=== PATIENT | female | born 1940 | race Caucasian/White ===

== ENCOUNTER 2018-02-03 17:08 | Emergency (ER) | payer OTHER, MEDICARE ==
[~2018-02-03] VITALS: Ht 170.2 cm; Wt 70.3 kg
[~2018-02-03 17:08] MED LIST: AUGMENTIN 875875 MG PO; IBU-6600 MG PO; LISINOPRIL10 MG PO; SIMVASTATIN20 MG PO; TYLENOL #31 TAB PO
--- NOTE | 2018-02-03 17:51 | ED HEAD/FACIAL INJ COMPLAINT ---
History of Present Illness General Chief Complaint: General Adult Stated Complaint: LEFT SIDE PAIN S/P FALL YESTERDAY -LOC +HEADSTRIKE Source: patient Exam Limitations: no limitations Vital Signs & Intake/Output Vital Signs & Intake/Output Vital Signs Date Time Temp Pulse Resp B/P B/P Pulse O2 O2 Flow FiO2 Mean Ox Delivery Rate 02/04 1916 96.7 77 18 160/76 96 Room Air 02/03 1713 97.5 94 16 197/75 97 Room Air Allergies Coded Allergies: NO KNOWN ALLERGIES (02/10/14) Reconcile Medications Lisinopril 10 MG TABLET 1 TAB PO QPM BP (Reported) Metoclopramide HCl (Reglan) 10 MG TABLET 1 TAB PO 4 TIMES/DAY PRN NAUSEA Simvastatin (Zocor) 20 MG TAB 1 TAB PO QPM CHOLESTEROL (Reported) Tramadol HCl 50 MG TABLET 1 TAB PO BIDP PRN PAIN Tylenol With Codeine (Tylenol With Codeine #3 Tablet) 1 TAB TAB 1 TAB PO Q6 PAIN Triage Note: PT STATES SHE WAS WAS SHUTTING OFF THE GRILL TURNED AND FELL HITTING HER HEAD. PT STATE SHE DOES NOT HAVE HEAD PAIN BUT STATES HER RIBS HURT ON THE LEFT SIDE. PT DENIES THINNERS. Triage Nurses Notes Reviewed? yes Onset: Abrupt Severity: moderate Severity Numbers: 5 Method of Injury: fall Loss of Consciousness: no loss of consciousness HPI: Patient is a 78-year-old female with a past medical history of hypertension who is an everyday smoker presents emergency room saying that while bent over turning on the gas of her drill she lost her footing falling backwards striking the left lateral aspect of her ribs and her posterior aspect of her head to the floor which no loss of consciousness had occurred patient denies any headache or neck or back pain however is complaining of left lateral rib pain. Denies any abdominal pain. Patient states that coughing makes worse no hemoptysis has occurred (Cam Aviles) Past History Travel History Traveled to [place] past 21 day No Medical History Any Pertinent Medical History? see below for history Cardiovascular: hypertension Tetanus Vaccine: 02/10/14 Surgical History Surgical History: non-contributory Psychosocial History What is your primary language Italian Tobacco Use: Current Daily Use Daily Tobacco Use Amount/Type: => 5 Cigarettes daily ETOH Use: occasional use Illicit Drug Use: denies illicit drug use Family History Hx Contributory? No (Cam Aviles) Review of Systems Review of Systems Constitutional: Reports: no symptoms. EENTM: Reports: no symptoms. Respiratory: Reports: see HPI, cough. Cardiovascular: Reports: see HPI. GI: Reports: no symptoms. Genitourinary: Reports: no symptoms. Musculoskeletal: Reports: see HPI. Skin: Reports: no symptoms. Neurological/Psychological: Reports: no symptoms. Hematologic/Endocrine: Reports: no symptoms. Immunologic/Allergic: Reports: no symptoms. All Other Systems: Reviewed and Negative (Cam Aviles) Physical Exam Physical Exam General Appearance: no apparent distress, alert, comfortable Head: atraumatic Eyes: Bilateral: normal appearance, PERRL, EOMI. Ears, Nose, Throat: normal pharynx, normal ENT inspection, hearing grossly normal Neck: normal inspection, no midline tenderness Respiratory: no respiratory distress, rhonchi Cardiovascular: regular rate/rhythm Back: no vertebral tenderness Extremities: normal inspection, no edema Psychiatric: awake, alert, oriented x 3 Cranial Nerves: normal hearing, normal speech, PERRL Skin: intact, normal color, warm/dry Comments: LEFT LATERAL CHEST- NORMAL INSPECTION MODERATE INTERCOSTAL PAIN NO STEP OFF DEFORMITY (Cam Aviles) Progress Differential Diagnosis: c-spine injury, facial fracture, globe injury, ICH, orbit fracture, skull fracture Plan of Care: Current Medications Sig/Mele Start time Last Medication Dose Stop Time Status Admin Tramadol HCl 50 MG ONCE ONE 02/04 2000 UNVr 02/03 (Ultram) 02/03 Patient upon initial examination was resting comfortably at bedside no central spinous tenderness on exam no bleeding has occurred patient was given Percocet prior to evaluation in which she had noted nausea episodes Zofran did not improve symptoms Reglan was administered patient was given tramadol patient was given tramadol with no adverse reactions an improvement of pain CT scans were resulted showing no acute abnormalities discussed results with patient patient normal steady gait clear lungs auscultation nontender abdomen on exam no central spinous pain Nexus criteria 0 patient will be treated for concerns of minor head injury and left rib contusion Diagnostic Imaging: Viewed by Me: CT Scan. Radiology Impression: no acute abnormality, no fracture Comments: PATIENT: SANDRA MONK PRESENT AGE: 78 PATIENT ACCOUNT NO: [id number] : 41 LOCATION: [facility] ([place]) ORDERING PHYSICIAN: Jose THURMAN SERVICE DATE: 02/03/181087 EXAM TYPE: CAT - CT CHEST WO IV CONTRAST EXAMINATION: CT CHEST WITHOUT CONTRAST CLINICAL INFORMATION: Fall, pain left ribs. COMPARISON: CT scan of the chest, abdomen and pelvis 06/12/2014. TECHNIQUE: Multidetector volumetric CT imaging of the chest was done. Axial MIP volume rendering provided. Sagittal and coronal reformatted images were obtained. DLP: 212.06 mGy-cm FINDINGS: TEST AND TURN UP TECHNICIAN: Unremarkable. LUNGS: The lungs are symmetrically well expanded. There is a stable 3 mm granuloma in the left upper lobe (image 86/560). There is a stable 2.5 mm nodule in the right upper lobe laterally (image 190/560). There is no focal consolidation. MEDIASTINUM: There are atheromatous calcifications of the great vessels of the neck and the aorta. There are coronary artery calcifications. The heart is normal in size. There are small mediastinal lymph nodes, similar compared to prior imaging. There are no pericardial effusions the thyroid gland is normal. The central airways are patent. There is a small hiatal hernia on the current study. PLEURA: There are no pleural effusions. No pneumothorax is demonstrated. CHEST WALL AND AXILLA: There is no axillary lymphadenopathy. There are small lucent centered lymph nodes in the axillary bilaterally. There are scattered calcifications in the breasts bilaterally. UPPER ABDOMEN: There is a 1.2 cm area of low attenuation in the superior aspect of the left lobe of the liver, with Hounsfield units consistent with a cyst. This is increased in size compared to prior imaging. OSSEOUS STRUCTURES: No fractures or subluxations are demonstrated. IMPRESSION: 1. There are no acute osseous findings. No fractures or subluxations are demonstrated. 2. There are no pleural effusions, focal consolidation or pneumothorax. 3. There are small stable nodules bilaterally as described above. There is a small hiatal hernia. DICTATED BY: Brigido Bedoya MD DATE/TIME DICTATED:02/03/181942 BIOLOGICAL SCIENCES INSTRUCTOR:ERROL DATE/TIME TRANSCRIBED:02/03/181942 CONFIDENTIAL, DO NOT COPY WITHOUT APPROPRIATE AUTHORIZATION. <Electronically signed in Other Vendor System> SIGNED BY: Brigido Bedoya MD 02/03/181958 PATIENT: SANDRA MONK PRESENT AGE: 78 PATIENT ACCOUNT NO: [id number] : 41 LOCATION: [facility] ([place] ORDERING PHYSICIAN: Cam THURMAN SERVICE DATE: 02/03/18 EXAM TYPE: CAT - CT CERV SPINE WO IV CONTRAST; CT HEAD WO IV CONTRAST EXAMINATION: CT HEAD WITHOUT CONTRAST CT CERVICAL SPINE WITHOUT CONTRAST CLINICAL INFORMATION: Fall. Head strike. COMPARISON: None. TECHNIQUE: Multidetector CT imaging of the head and cervical spine was performed without the use of intravenous contrast. Coronal and sagittal reformatted images were generated at the technologist workstation. DLP: 938.99 mGy-cm. FINDINGS: CT head: There is no evidence of acute intracranial hemorrhage or territorial infarction. No abnormal mass-effect or midline shift is seen. Bruce to white matter differentiation is well preserved. No extra-axial fluid collections are identified. The ventricles and sulci are commensurately prominent consistent with moderate diffuse volume loss. There are relatively extensive areas of low-attenuation in the periventricular and subcortical white matter consistent with chronic microvascular ischemic disease. There have been bilateral lens extractions. There are no large scalp contusions or hematomas. There are atheromatous calcifications of the cavernous internal carotid arteries bilaterally. There is fluid at the right mastoid tip. The left mastoid air cells and visualized paranasal sinuses are well-aerated. CT cervical spine: There is a mild dextroscoliosis. There is degenerative retrolisthesis of C5 on C6. Vertebral body heights are maintained and there are no compression fractures. There are marginal osteophytes at C4-C5 and C5-C6. There are facet arthropathic changes which are most severe on the left at C3-C4 and on the right at C4-C5. The lateral masses of C1 and C2 are normally aligned and the dens is intact. The atlantooccipital articulations are normal. There are prominent multifocal atheromatous calcifications. Thyroid gland appears normal. The visualized lung apices are well-aerated. IMPRESSION: 1. There are no acute bleeds or territorial infarcts. No masses are demonstrated. There are no acute osseous or soft tissue abnormalities. 2. There is diffuse volume loss and there are chronic microvascular ischemic changes. 3. There are multilevel spondylitic changes in the cervical spine. There are no acute fractures or subluxations. DICTATED BY: Brigido Bedoya MD DATE/TIME DICTATED:02/03/181899 BIOLOGICAL SCIENCES INSTRUCTOR:ERROL DATE/TIME TRANSCRIBED:02/03/181899 (Cam Aviles) Departure Departure Disposition: HOME OR SELF CARE Condition: Stable Clinical Impression Primary Impression: Minor head trauma Secondary Impressions: Contusion of rib on left side, Fall Referrals: Carrington MALDONADO,Vaibhav Aguilar (PCP/Family) Additional Instructions: As discussed begin icing the area directly 20 minutes every 2 hours, begin over- the-counter ibuprofen or Tylenol for pain and begin the prescription tramadol for breakthrough pain relief begin the prescription of Reglan for nausea. If no better in 2 days follow-up with your primary care doctor. If symptoms worsen or if you develop new concerning symptoms return to the emergency room. Prescriptions waiting at [facility] Departure Forms: Customer Survey General Discharge Information Prescriptions: Current Visit Scripts Metoclopramide HCl (Reglan) 1 TAB PO 4 TIMES/DAY PRN NAUSEA #12 TAB Tramadol HCl 1 TAB PO BIDP PRN PAIN #12 TAB (Cam Aviles) PA/CARDIAC NURSE SPECIALIST Co-Sign Statement Statement: ED Attending supervision documentation- [X] I saw and evaluated the patient. I have also reviewed all the pertinent lab results and diagnostic results. I agree with the findings and the plan of care as documented in the PA's/CARDIAC NURSE SPECIALIST's documentation. [X] I have reviewed the ED Record and agree with the PA's/CARDIAC NURSE SPECIALIST's documentation. [] Additions or exceptions (if any) to the PAs/CARDIAC NURSE SPECIALIST's note and plan are summarized below: [] (Blanca MALDONADO,Francis Hawk)
--- NOTE | 2018-02-03 19:10 | CT SCAN REPORT ---
EXAMINATION: CT HEAD WITHOUT CONTRAST CT CERVICAL SPINE WITHOUT CONTRAST CLINICAL INFORMATION: Fall. Head strike. COMPARISON: None. TECHNIQUE: Multidetector CT imaging of the head and cervical spine was performed without the use of intravenous contrast. Coronal and sagittal reformatted images were generated at the technologist workstation. DLP: 938.99 mGy-cm. FINDINGS: CT head: There is no evidence of acute intracranial hemorrhage or territorial infarction. No abnormal mass-effect or midline shift is seen. Bruce to white matter differentiation is well preserved. No extra-axial fluid collections are identified. The ventricles and sulci are commensurately prominent consistent with moderate diffuse volume loss. There are relatively extensive areas of low-attenuation in the periventricular and subcortical white matter consistent with chronic microvascular ischemic disease. There have been bilateral lens extractions. There are no large scalp contusions or hematomas. There are atheromatous calcifications of the cavernous internal carotid arteries bilaterally. There is fluid at the right mastoid tip. The left mastoid air cells and visualized paranasal sinuses are well-aerated. CT cervical spine: There is a mild dextroscoliosis. There is degenerative retrolisthesis of C5 on C6. Vertebral body heights are maintained and there are no compression fractures. There are marginal osteophytes at C4-C5 and C5-C6. There are facet arthropathic changes which are most severe on the left at C3-C4 and on the right at C4-C5. The lateral masses of C1 and C2 are normally aligned and the dens is intact. The atlantooccipital articulations are normal. There are prominent multifocal atheromatous calcifications. Thyroid gland appears normal. The visualized lung apices are well-aerated. IMPRESSION: 1. There are no acute bleeds or territorial infarcts. No masses are demonstrated. There are no acute osseous or soft tissue abnormalities. 2. There is diffuse volume loss and there are chronic microvascular ischemic changes. 3. There are multilevel spondylitic changes in the cervical spine. There are no acute fractures or subluxations.
[2018-02-03 19:16] VITALS: BP 160/76
--- NOTE | 2018-02-03 19:59 | CT SCAN REPORT ---
EXAMINATION: CT CHEST WITHOUT CONTRAST CLINICAL INFORMATION: Fall, pain left ribs. COMPARISON: CT scan of the chest, abdomen and pelvis 06/12/2014. TECHNIQUE: Multidetector volumetric CT imaging of the chest was done. Axial MIP volume rendering provided. Sagittal and coronal reformatted images were obtained. DLP: 212.06 mGy-cm FINDINGS: SVP RESEARCH AND STRATEGIC ANALYSIS: Unremarkable. LUNGS: The lungs are symmetrically well expanded. There is a stable 3 mm granuloma in the left upper lobe (image 86/560). There is a stable 2.5 mm nodule in the right upper lobe laterally (image 190/560). There is no focal consolidation. MEDIASTINUM: There are atheromatous calcifications of the great vessels of the neck and the aorta. There are coronary artery calcifications. The heart is normal in size. There are small mediastinal lymph nodes, similar compared to prior imaging. There are no pericardial effusions the thyroid gland is normal. The central airways are patent. There is a small hiatal hernia on the current study. PLEURA: There are no pleural effusions. No pneumothorax is demonstrated. CHEST WALL AND AXILLA: There is no axillary lymphadenopathy. There are small lucent centered lymph nodes in the axillary bilaterally. There are scattered calcifications in the breasts bilaterally. UPPER ABDOMEN: There is a 1.2 cm area of low attenuation in the superior aspect of the left lobe of the liver, with Hounsfield units consistent with a cyst. This is increased in size compared to prior imaging. OSSEOUS STRUCTURES: No fractures or subluxations are demonstrated. IMPRESSION: 1. There are no acute osseous findings. No fractures or subluxations are demonstrated. 2. There are no pleural effusions, focal consolidation or pneumothorax. 3. There are small stable nodules bilaterally as described above. There is a small hiatal hernia.
[2018-02-03] MEDS ORDERED: TRAMADOL HCL50 M1 PO (20:13)
[2018-02-03] MEDS ORDERED: REGLAN10 M1 PO (20:13)
== END 2018-02-03 20:47 ==
LOC: ERH 17:08
DX: S20.212A Contusion of left front wall of thorax, initial encounter (principal); S09.90XA Unspecified injury of head, initial encounter; W19.XXXA Unspecified fall, initial encounter; Y92.9 Unspecified place or not applicable; Y93.9 Activity, unspecified
CPT/HCPCS: J3101